=== PATIENT | female | born 1995 | race Caucasian/White ===

== ENCOUNTER 2017-02-07 16:36 | Outpatient (CLI) | payer MEDICAID ==
[2017-02-07 16:52] VITALS: BP 111/69
== END 2017-02-07 18:39 | disposition home or self-care (01) ==
LOC: TRG 16:36
PROVIDERS: ATTEND Obstetrics & Gynecology
DX: O47.1 False labor at or after 37 completed weeks of gestation (principal); Z3A.39 39 weeks gestation of pregnancy
CPT/HCPCS: 59025

== ENCOUNTER 2017-02-08 07:56 | Inpatient (IN) | payer MEDICAID ==
[2017-02-08] MEDS ORDERED: SUBLIMAZE IV PRN (08:22)
[2017-02-08] MEDS ORDERED: ePHEDrine SULFATE IV PRN ×2 (08:22→12:58)
[2017-02-08] MEDS ORDERED: MINERAL OIL PO PRN (08:22)
[2017-02-08] MEDS ORDERED: XYLOCAINE 2% INFILTRATI ONE (08:22)
--- NOTE | 2017-02-08 08:37 | History and Physical Report ---
History of Present Illness Date of examination: 02/08/17 (pt called with c/o SROM @ 0700 "brown color") Date of admission: 02/08/17 07:56 History of present illness: EDC Confirmation: 02/08/2017 Gestational Age: 6 5/7 weeks Past History : 2 Term Births: 1 Living Children: 1 Para: 1 # 1 Delivery date: 08/06/2014 Weeks Gestation: 38 Delivery type: Vaginal Anesthesia type: epidural Delivery location: [facility] Sex: female weight: 6.75 Comments: none Past Medical History: Reviewed history from 02/13/2014 and no changes required: None Past Surgical History: Reviewed history from 02/13/2014 and no changes required: Right arm surgery s/p fall at 6yrs old Past Medical History Abnormal PAP: negative ANNA MARIE Exposure: negative Infertility: negative Uterine Anomaly: negative Uterine Surgery (not C/S): negative Other Gynecologic Problems: negative Social Hx: Patient is single Student 11th grade Infection History Hx of STD: HPV HIV Risk Eval: low risk Hepatitis B Risk Eval: low risk Personal hx. of genital herpes: no Partner hx. of genital herpes: no Rash, Viral, or Febrile illness since last LMP? no Varicella/Chicken Pox Status: Unknown TB Risk: no Genetic History Congenital Heart Defect: Mom: no Dad: no Fred Disease: Mom: no Dad: no Thalassemia Mom: no Dad: no Neural Tube Defect Mom: no Dad: no Down's Syndrome Mom: no Dad: no Heriberto-Sachs Mom: no Dad: no Sickle Cell Disease/Trait Mom: no Dad: no Hemophilia Mom: no Dad: no Muscular Dystrophy Mom: no Dad: no Cystic Fibrosis Mom: no Dad: no [place] Chorea Mom: no Dad: no Mental Retardation Mom: no Dad: no Fragile X Mom: no Dad: no Other Genetic/Chromosomal Disorder Mom: no Dad: no Child w/other defect Mom: no Dad: no Enviromental Exposures Xray Exposure: no Medication, drug, or alcohol use since LMP: no Chemical/Other Exposure: no Exposure to Cat Liter: no Hx of Parvovirus (Fifth Disease): no Occupational Exposure to Children: none Active Medications (reviewed today): ZOFRAN ODT 8 MG TBDP (ONDANSETRON) 1 po q12hrs prn Current Allergies (reviewed today): * CORN (Critical) * SHELLFISH (Critical) Laboratory Results Date/Time Collected: 06/20/2016 Routine Urinalysis Protein: 1+ Glucose: Negative Urine HCG: positive Review of Systems General Denies fever, chills, sweats, anorexia, fatigue, weakness, malaise, weight loss and sleep disorder. Denies nausea, vomiting, headache, swelling of legs, abdominal pain, vaginal discharge, vaginal bleeding and contractions. Denies vaginal discharge, incontinence, dysuria, hematuria, urinary frequency, amenorrhea, menorrhagia, abnormal vaginal bleeding, pelvic pain, genital sores, decreased libido, painful periods, painful sex, urinary urgency, hot flashes, vaginal dryness, vaginal itching and vaginal odor. CV Denies chest pains, palpitations, syncope, dyspnea on exertion, orthopnea, PND and peripheral edema. Resp Denies cough, dyspnea at rest, excessive sputum, hemoptysis, wheezing and pleurisy. GI Denies nausea, vomiting, diarrhea, constipation, change in bowel habits, abdominal pain, melena, hematochezia, jaundice, gas/bloating, indigestion/ heartburn, dysphagia and odynophagia. Endo Denies cold intolerance, heat intolerance, polydipsia, polyphagia, polyuria and unusual weight change. Breast Denies left breast lump, right breast lump, nipple discharge, bloody discharge from nipple, breast pain, abnormal mammogram and breast enlargement. MS Denies back pain, joint pain, joint swelling, muscle cramps, muscle weakness, stiffness, arthritis, sciatica, restless legs, leg pain at night and leg pain with exertion. Derm Denies rash, itching, dryness and suspicious lesions. Neuro Denies paralysis, paresthesias, headache, seizures, tremors, vertigo, transient blindness, frequent falls, frequent headaches and difficulty walking. Psych Denies depression, anxiety, irritability and mood swings. Eyes Denies blurring, diplopia, irritation, discharge, vision loss, eye pain and photophobia. ENT Denies earache, ear discharge, tinnitus, decreased hearing, nasal congestion, nosebleeds, sore throat and hoarseness. Allergy Denies urticaria, allergic rash, hay fever and recurrent infections. Heme Denies abnormal bruising, bleeding and enlarged lymph nodes. 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 Vulva/Vagina: No lesions, normal BUS, normal rugae Cervix: No lesions; no cervical motion tenderness Uterus: normal size and position, midline, mobile Adnexae: no masses or tenderness Rectovaginal: no masses or tenderness Past History - Obstetrical History Expected Date of Delivery: 02/08/17 Actual Gestation: 40 Week(s) 0 Day(s) : 2 Para: 1 Hx # Term Pregnancies: 1 Number of Living Children: 1 Medications and Allergies Allergies Allergy/AdvReac Type Severity Reaction Status Date / Time No Known Allergies Allergy Verified 08/04/14 07:45 Home Medications Medication Instructions Recorded Confirmed Last Taken Type Doxylamine/Pyridoxine HCl 1 each PO Q6HR PRN #30 tablet. 06/09/16 Unknown Rx [Frankie Tamayo 10-10 mg Tablet] Vit W-Ca,Fe,FA(<1 mg) 1 each PO QDAY #30 tablet 06/09/16 Unknown Rx [ Vitamins] Active Meds: Active Medications Ephedrine Sulfate (Ephedrine Sulfate) 10 mg IV Q2M PRN PRN Reason: Hypotension Stop: 02/08/17 08:27 Fentanyl (Sublimaze) 100 mcg IV Q2H PRN PRN Reason: Labor Pain Lactated Ringer's (Lactated Ringers) 1,000 mls @ 125 mls/hr IV DIRECT COREY Oxytocin/Sodium Chloride (Pitocin/Ns 20 Unit/1000ml Drip) 20 units in 1,000 mls @ 125 mls/hr IV DIRECT COREY Oxytocin/Sodium Chloride (Pitocin/Ns 30 Unit/500ml) 30 units in 500 mls @ 4 mls /hr IV Q30MIN COREY PRN Reason: Protocol Lidocaine (Xylocaine 2%) 20 ml INFILTRATI ONCE ONE Stop: 02/08/17 08:23 Mineral Oil (Mineral Oil) 30 ml PO QHS PRN PRN Reason: Constipation Terbutaline Sulfate (Brethine) 0.25 mg SUB-Q ONCE PRN PRN Reason: Hyperstimulation/Hypertonicity Stop: 02/08/17 08:23 - Vital Signs Vital signs: Vital Signs Pulse BP 100 H 109/65 02/08/17 08:13 02/08/17 08:13 Temp Pulse Resp BP Pulse Ox 87 109/65 100 02/08/17 08:24 02/08/17 08:13 02/08/17 08:24 - Physical Exam Breasts: Positive: deferred Cardiovascular: Regular rate, Normal S1, Normal S2 Lungs: Positive: Normal air movement Abdomen: Positive: normal appearance, soft, normal bowel sounds. Negative: distention, tenderness Genitourinary (Female): Positive: normal external genitalia Vulva: both: normal Vagina: Positive: normal moisture. Negative: discharge Cervix: Negative: lesion, discharge Uterus: Positive: normal size, normal contour Adnexa: both: normal Anus/Rectum: Positive: normal perianal skin, heme negative. Negative: rectal mass, hemorrhoids Extremities: Positive: edema Deep Tendon Reflex Grade: Normal +2 - Obstetrical FHR: category 1 Uterine Contraction Monitor Mode: External Cervical Dilatation: 2 (posterior) Cervical Effacement Percentage: 50 (meconium) station: -2 Results All other labs normal. Laboratory Data-Patient Name: PETER MCLEANIREZ Test Date Result Blood Type 07/12/2016 O Rh 07/12/2016 Positive Antibody Screen negative Rubella 07/12/2016 IMMUNE Serology (RPR) 01/12/2017 NR HBsAg 07/12/2016 Negative Hemoglobin 11/09/2016 10.6 Hematocrit 11/09/2016 32.9 Platelets 07/12/2016 247 [id number] Chlamydia DNA 11/09/2016 Negative GC DNA/Culture 11/09/2016 Urine Culture 11/09/2016 Final report Group B Strep cult negative PAP HIV 01/12/2017 AFP/Quad Screen Glucola Test 3hr GTT (Fasting) 1 hr 2 hr 3 hr [facility]-Patient Name:PETER MOORE ELHAM Test Date Result Varicella Ab Sickle Cell 07/12/2016 Negative PPD Fibronectin Cystic Fibrosis Parvovirus TSH Free T4 Hepatitis C ALT AST Uric Acid Creatinine 24 hr Urine Protein OSCAR Assessment and Plan 21yo presents with SROM meconium SVE 2,50,-2 posterior. GBS negative Orders in EMR Re-eval as needed.
[2017-02-08 08:38] LABS: Hematocrit 35.7 % (30.3-42.9); Hemoglobin 11.3 gm/dl (10.1-14.3); Mean Corpuscular HGB Conc 32 % (30-34); Mean Corpuscular Hemoglobin 24 pg (28-32); Mean Corpuscular Volume 76 fl (79-97); Platelet Count 206 K/mm3 (140-440); Red Blood Count 4.69 M/mm3 (3.65-5.03); Red Cell Distribution Width 16.1 % (13.2-15.2); White Blood Count 7.9 K/mm3 (4.5-11.0)
[2017-02-08] MEDS: PITOCin/NS 30 UNIT/500ML 30 UNITS/500 ML BAG IV SCH ×5 (08:55→15:51)
[2017-02-08] MEDS: LACTATED RINGERS 1,000 ML IV SCH ×3 (08:55→14:30)
[2017-02-08] MEDS ORDERED: PITOCin/NS 20 UNIT/1000ML DRIP 20 UNITS/1,000 ML BAG IV SCH (09:00)
[2017-02-08] MEDS ORDERED: BRETHINE SUB-Q PRN (09:30)
--- NOTE | 2017-02-08 12:11 | Progress Note ---
Assessment and Plan complete epidural bolus Pit @ 4mu Re-eval after epidural Subjective - Subjective Date of service: 02/08/17 (req epidural) Interval history: EDC Confirmation: 02/08/2017 Gestational Age: 6 5/7 weeks Past History : 2 Term Births: 1 Living Children: 1 Para: 1 # 1 Delivery date: 08/06/2014 Weeks Gestation: 38 Delivery type: Vaginal Anesthesia type: epidural Delivery location: [facility] Sex: female weight: 6.75 Comments: none Past Medical History: Reviewed history from 02/13/2014 and no changes required: None Past Surgical History: Reviewed history from 02/13/2014 and no changes required: Right arm surgery s/p fall at 6yrs old Past Medical History Abnormal PAP: negative ANNA MARIE Exposure: negative Infertility: negative Uterine Anomaly: negative Uterine Surgery (not C/S): negative Other Gynecologic Problems: negative Social Hx: Patient is single Student 11th grade Infection History Hx of STD: HPV HIV Risk Eval: low risk Hepatitis B Risk Eval: low risk Personal hx. of genital herpes: no Partner hx. of genital herpes: no Rash, Viral, or Febrile illness since last LMP? no Varicella/Chicken Pox Status: Unknown TB Risk: no Genetic History Congenital Heart Defect: Mom: no Dad: no Fred Disease: Mom: no Dad: no Thalassemia Mom: no Dad: no Neural Tube Defect Mom: no Dad: no Down's Syndrome Mom: no Dad: no Heriberto-Sachs Mom: no Dad: no Sickle Cell Disease/Trait Mom: no Dad: no Hemophilia Mom: no Dad: no Muscular Dystrophy Mom: no Dad: no Cystic Fibrosis Mom: no Dad: no [place] Chorea Mom: no Dad: no Mental Retardation Mom: no Dad: no Fragile X Mom: no Dad: no Other Genetic/Chromosomal Disorder Mom: no Dad: no Child w/other defect Mom: no Dad: no Enviromental Exposures Xray Exposure: no Medication, drug, or alcohol use since LMP: no Chemical/Other Exposure: no Exposure to Cat Liter: no Hx of Parvovirus (Fifth Disease): no Occupational Exposure to Children: none Active Medications (reviewed today): ZOFRAN ODT 8 MG TBDP (ONDANSETRON) 1 po q12hrs prn Current Allergies (reviewed today): * CORN (Critical) * SHELLFISH (Critical) Laboratory Results Date/Time Collected: 06/20/2016 Routine Urinalysis Protein: 1+ Glucose: Negative Urine HCG: positive Review of Systems General Denies fever, chills, sweats, anorexia, fatigue, weakness, malaise, weight loss and sleep disorder. Denies nausea, vomiting, headache, swelling of legs, abdominal pain, vaginal discharge, vaginal bleeding and contractions. Denies vaginal discharge, incontinence, dysuria, hematuria, urinary frequency, amenorrhea, menorrhagia, abnormal vaginal bleeding, pelvic pain, genital sores, decreased libido, painful periods, painful sex, urinary urgency, hot flashes, vaginal dryness, vaginal itching and vaginal odor. CV Denies chest pains, palpitations, syncope, dyspnea on exertion, orthopnea, PND and peripheral edema. Resp Denies cough, dyspnea at rest, excessive sputum, hemoptysis, wheezing and pleurisy. GI Denies nausea, vomiting, diarrhea, constipation, change in bowel habits, abdominal pain, melena, hematochezia, jaundice, gas/bloating, indigestion/ heartburn, dysphagia and odynophagia. Endo Denies cold intolerance, heat intolerance, polydipsia, polyphagia, polyuria and unusual weight change. Breast Denies left breast lump, right breast lump, nipple discharge, bloody discharge from nipple, breast pain, abnormal mammogram and breast enlargement. MS Denies back pain, joint pain, joint swelling, muscle cramps, muscle weakness, stiffness, arthritis, sciatica, restless legs, leg pain at night and leg pain with exertion. Derm Denies rash, itching, dryness and suspicious lesions. Neuro Denies paralysis, paresthesias, headache, seizures, tremors, vertigo, transient blindness, frequent falls, frequent headaches and difficulty walking. Psych Denies depression, anxiety, irritability and mood swings. Eyes Denies blurring, diplopia, irritation, discharge, vision loss, eye pain and photophobia. ENT Denies earache, ear discharge, tinnitus, decreased hearing, nasal congestion, nosebleeds, sore throat and hoarseness. Allergy Denies urticaria, allergic rash, hay fever and recurrent infections. Heme Denies abnormal bruising, bleeding and enlarged lymph nodes. 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/Vagina: No lesions, normal BUS, normal rugae Cervix: No lesions; no cervical motion tenderness Uterus: normal size and position, midline, mobile Adnexae: no masses or tenderness Rectovaginal: no masses or tenderness Patient reports: movement normal Objective - Vital Signs Vital Signs: Vital Signs - 12hr 02/08/17 02/08/17 02/08/17 08:13 08:14 08:15 Temperature 98.9 F Pulse Rate 100 H 103 H Pulse Rate [ 100 H From Monitor] Respiratory 20 Rate Blood Pressure 109/65 Blood Pressure 109/65 [Right Arm] O2 Sat by Pulse 98 99 Oximetry 02/08/17 02/08/17 02/08/17 08:19 08:24 08:28 Temperature Pulse Rate 95 H 87 93 H Pulse Rate [ From Monitor] Respiratory Rate Blood Pressure Blood Pressure [Right Arm] O2 Sat by Pulse 99 100 98 Oximetry 02/08/17 02/08/17 02/08/17 10:25 10:27 10:30 Temperature Pulse Rate 78 79 76 Pulse Rate [ From Monitor] Respiratory Rate Blood Pressure Blood Pressure [Right Arm] O2 Sat by Pulse 100 94 97 Oximetry 02/08/17 02/08/17 02/08/17 10:35 10:40 10:45 Temperature Pulse Rate 72 76 79 Pulse Rate [ From Monitor] Respiratory Rate Blood Pressure Blood Pressure [Right Arm] O2 Sat by Pulse 97 97 97 Oximetry 02/08/17 02/08/17 02/08/17 10:50 10:55 11:00 Temperature Pulse Rate 78 82 87 Pulse Rate [ From Monitor] Respiratory Rate Blood Pressure Blood Pressure [Right Arm] O2 Sat by Pulse 97 97 97 Oximetry 02/08/17 02/08/17 02/08/17 11:05 11:10 11:15 Temperature Pulse Rate 79 99 H 86 Pulse Rate [ From Monitor] Respiratory Rate Blood Pressure Blood Pressure [Right Arm] O2 Sat by Pulse 98 98 97 Oximetry 02/08/17 02/08/17 02/08/17 11:20 11:25 11:30 Temperature Pulse Rate 81 80 87 Pulse Rate [ From Monitor] Respiratory Rate Blood Pressure Blood Pressure [Right Arm] O2 Sat by Pulse 97 98 98 Oximetry 02/08/17 02/08/17 02/08/17 11:35 11:40 11:45 Temperature Pulse Rate 100 H 85 86 Pulse Rate [ From Monitor] Respiratory Rate Blood Pressure Blood Pressure [Right Arm] O2 Sat by Pulse 98 98 97 Oximetry - Exam Breasts: deferred Cardiovascular: Regular rate Lungs: Normal air movement Abdomen: Present: normal appearance, soft. Absent: distention, tenderness Uterus: Present: normal FHR: auscultation normal, category 1 Uterine Contraction Monitor Mode: Internal Cervical Dilatation: 4 (ISE/IUPC placed) Cervical Effacement Percentage: 70 station: -1 Uterine Contraction Pattern: Regular Uterine Contraction Intensity: Moderate Extremities: normal Deep Tendon Reflex Grade: Normal +2 - Labs Labs: Abnormal Labs 02/08/17 08:20 MCV 76 L MCH 24 L RDW 16.1 H Laboratory Results - last 24 hr 02/08/17 02/08/17 02/08/17 08:20 08:20 08:41 WBC 7.9 RBC 4.69 Hgb 11.3 Hct 35.7 MCV 76 L MCH 24 L MCHC 32 RDW 16.1 H Plt Count 206 RPR Nonreactive Blood Type O POSITIVE YESENIA Antibody Screen Negative
[2017-02-08] MEDS ORDERED: fentaNYL-BUPIV 2 MCG/ML-0.125% 200 MCG/100 ML BAG EPIDURAL ONE (12:52)
[2017-02-08] MEDS ORDERED: NARCAN 2 MG/2 ML IV PRN (12:58)
--- NOTE | 2017-02-08 12:58 | Anesthesia Consultation ---
Anesthesia Consult and Med Hx Date of service: 02/08/17 - Airway Anesthetic Teeth Evaluation: Good ROM Head & Neck: Adequate Mental/Hyoid Distance: Adequate Mallampati Class: Class II Intubation Access Assessment: Probably Good - Pulmonary Exam CTA: Yes - Cardiac Exam Cardiac Exam: RRR - Pre-Operative Health Status ASA Pre-Surgery Classification: ASA2 Proposed Anesthetic Plan: Epidural - Pulmonary Hx Asthma: No COPD: No Hx Pneumonia: No - Cardiovascular System Hx Hypertension: No - Central Nervous System Hx Seizures: No Hx Psychiatric Problems: No - Endocrine Hx Renal Disease: No Hx End Stage Renal Disease: No Hx Hypothyroidism: No Hx Hyperthyroidism: No - Hematic Hx Anemia: No Hx Sickle Cell Disease: No - Other Systems Hx Alcohol Use: No
[2017-02-08] MEDS ORDERED: fentaNYL-BUPIV 2 MCG/ML-0.125% 200 MCG/100 ML BAG EPIDURAL SCH (13:00)
--- NOTE | 2017-02-08 16:17 | Progress Note ---
Assessment and Plan Pitocin @ 20 mu SVE 8,100,0 Anticipate delivery Subjective - Subjective Date of service: 02/08/17 (pt very comfortable with epidural) Interval history: EDC Confirmation: 02/08/2017 Gestational Age: 6 5/7 weeks Past History : 2 Term Births: 1 Living Children: 1 Para: 1 # 1 Delivery date: 08/06/2014 Weeks Gestation: 38 Delivery type: Vaginal Anesthesia type: epidural Delivery location: [facility] Infant Sex: female weight: 6.75 Comments: none Past Medical History: Reviewed history from 02/13/2014 and no changes required: None Past Surgical History: Reviewed history from 02/13/2014 and no changes required: Right arm surgery s/p fall at 6yrs old Past Medical History Abnormal PAP: negative ANNA MARIE Exposure: negative Infertility: negative Uterine Anomaly: negative Uterine Surgery (not C/S): negative Other Gynecologic Problems: negative Social Hx: Patient is single Student 11th grade Infection History Hx of STD: HPV HIV Risk Eval: low risk Hepatitis B Risk Eval: low risk Personal hx. of genital herpes: no Partner hx. of genital herpes: no Rash, Viral, or Febrile illness since last LMP? no Varicella/Chicken Pox Status: Unknown TB Risk: no Genetic History Congenital Heart Defect: Mom: no Dad: no Fred Disease: Mom: no Dad: no Thalassemia Mom: no Dad: no Neural Tube Defect Mom: no Dad: no Down's Syndrome Mom: no Dad: no Heriberto-Sachs Mom: no Dad: no Sickle Cell Disease/Trait Mom: no Dad: no Hemophilia Mom: no Dad: no Muscular Dystrophy Mom: no Dad: no Cystic Fibrosis Mom: no Dad: no [place] Chorea Mom: no Dad: no Mental Retardation Mom: no Dad: no Fragile X Mom: no Dad: no Other Genetic/Chromosomal Disorder Mom: no Dad: no Child w/other defect Mom: no Dad: no Enviromental Exposures Xray Exposure: no Medication, drug, or alcohol use since LMP: no Chemical/Other Exposure: no Exposure to Cat Liter: no Hx of Parvovirus (Fifth Disease): no Occupational Exposure to Children: none Active Medications (reviewed today): ZOFRAN ODT 8 MG TBDP (ONDANSETRON) 1 po q12hrs prn Current Allergies (reviewed today): * CORN (Critical) * SHELLFISH (Critical) Laboratory Results Date/Time Collected: 06/20/2016 Routine Urinalysis Protein: 1+ Glucose: Negative Urine HCG: positive Review of Systems General Denies fever, chills, sweats, anorexia, fatigue, weakness, malaise, weight loss and sleep disorder. Denies nausea, vomiting, headache, swelling of legs, abdominal pain, vaginal discharge, vaginal bleeding and contractions. Denies vaginal discharge, incontinence, dysuria, hematuria, urinary frequency, amenorrhea, menorrhagia, abnormal vaginal bleeding, pelvic pain, genital sores, decreased libido, painful periods, painful sex, urinary urgency, hot flashes, vaginal dryness, vaginal itching and vaginal odor. CV Denies chest pains, palpitations, syncope, dyspnea on exertion, orthopnea, PND and peripheral edema. Resp Denies cough, dyspnea at rest, excessive sputum, hemoptysis, wheezing and pleurisy. GI Denies nausea, vomiting, diarrhea, constipation, change in bowel habits, abdominal pain, melena, hematochezia, jaundice, gas/bloating, indigestion/ heartburn, dysphagia and odynophagia. Endo Denies cold intolerance, heat intolerance, polydipsia, polyphagia, polyuria and unusual weight change. Breast Denies left breast lump, right breast lump, nipple discharge, bloody discharge from nipple, breast pain, abnormal mammogram and breast enlargement. MS Denies back pain, joint pain, joint swelling, muscle cramps, muscle weakness, stiffness, arthritis, sciatica, restless legs, leg pain at night and leg pain with exertion. Derm Denies rash, itching, dryness and suspicious lesions. Neuro Denies paralysis, paresthesias, headache, seizures, tremors, vertigo, transient blindness, frequent falls, frequent headaches and difficulty walking. Psych Denies depression, anxiety, irritability and mood swings. Eyes Denies blurring, diplopia, irritation, discharge, vision loss, eye pain and photophobia. ENT Denies earache, ear discharge, tinnitus, decreased hearing, nasal congestion, nosebleeds, sore throat and hoarseness. Allergy Denies urticaria, allergic rash, hay fever and recurrent infections. Heme Denies abnormal bruising, bleeding and enlarged lymph nodes. 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, or edema [employer] Exams Vulva/Vagina: No lesions, normal BUS, normal rugae Cervix: No lesions; no cervical motion tenderness Uterus: normal size and position, midline, mobile Adnexae: no masses or tenderness Rectovaginal: no masses or tenderness Patient reports: movement normal Objective - Vital Signs Vital Signs: Vital Signs - 12hr 02/08/17 02/08/17 02/08/17 08:13 08:14 08:15 Temperature 98.9 F Pulse Rate 100 H 103 H Pulse Rate [ 100 H From Monitor] Respiratory 20 Rate Blood Pressure 109/65 Blood Pressure 109/65 [Right Arm] O2 Sat by Pulse 98 99 Oximetry 02/08/17 02/08/17 02/08/17 08:19 08:24 08:28 Temperature Pulse Rate 95 H 87 93 H Pulse Rate [ From Monitor] Respiratory Rate Blood Pressure Blood Pressure [Right Arm] O2 Sat by Pulse 99 100 98 Oximetry 02/08/17 02/08/17 02/08/17 10:25 10:27 10:30 Temperature Pulse Rate 78 79 76 Pulse Rate [ From Monitor] Respiratory Rate Blood Pressure Blood Pressure [Right Arm] O2 Sat by Pulse 100 94 97 Oximetry 02/08/17 02/08/17 02/08/17 10:35 10:40 10:45 Temperature Pulse Rate 72 76 79 Pulse Rate [ From Monitor] Respiratory Rate Blood Pressure Blood Pressure [Right Arm] O2 Sat by Pulse 97 97 97 Oximetry 02/08/17 02/08/17 02/08/17 10:50 10:55 11:00 Temperature Pulse Rate 78 82 87 Pulse Rate [ From Monitor] Respiratory Rate Blood Pressure Blood Pressure [Right Arm] O2 Sat by Pulse 97 97 97 Oximetry 02/08/17 02/08/17 02/08/17 11:05 11:10 11:15 Temperature Pulse Rate 79 99 H 86 Pulse Rate [ From Monitor] Respiratory Rate Blood Pressure Blood Pressure [Right Arm] O2 Sat by Pulse 98 98 97 Oximetry 02/08/17 02/08/17 02/08/17 11:20 11:25 11:30 Temperature Pulse Rate 81 80 87 Pulse Rate [ From Monitor] Respiratory Rate Blood Pressure Blood Pressure [Right Arm] O2 Sat by Pulse 97 98 98 Oximetry 02/08/17 02/08/17 02/08/17 11:35 11:40 11:45 Temperature Pulse Rate 100 H 85 86 Pulse Rate [ From Monitor] Respiratory Rate Blood Pressure Blood Pressure [Right Arm] O2 Sat by Pulse 98 98 97 Oximetry 02/08/17 02/08/17 02/08/17 13:09 13:13 14:05 Temperature Pulse Rate 99 H 93 H 90 Pulse Rate [ From Monitor] Respiratory Rate Blood Pressure 119/58 95/56 87/51 Blood Pressure [Right Arm] O2 Sat by Pulse Oximetry 02/08/17 02/08/17 02/08/17 14:14 14:27 14:30 Temperature Pulse Rate 97 H 113 H 112 H Pulse Rate [ From Monitor] Respiratory Rate Blood Pressure 91/54 86/51 90/55 Blood Pressure [Right Arm] O2 Sat by Pulse Oximetry - Exam Breasts: deferred Cardiovascular: Regular rate Lungs: Normal air movement Abdomen: Present: normal appearance, soft. Absent: distention, tenderness Uterus: Present: normal FHR: auscultation normal, category 1 Uterine Contraction Monitor Mode: Internal Cervical Dilatation: 8 Cervical Effacement Percentage: 100 station: 0 Uterine Contraction Pattern: Regular Uterine Contraction Intensity: Moderate Extremities: normal Deep Tendon Reflex Grade: Normal +2 - Labs Labs: Abnormal Labs 02/08/17 08:20 MCV 76 L MCH 24 L RDW 16.1 H Laboratory Results - last 24 hr 02/08/17 02/08/17 02/08/17 08:20 08:20 08:41 WBC 7.9 RBC 4.69 Hgb 11.3 Hct 35.7 MCV 76 L MCH 24 L MCHC 32 RDW 16.1 H Plt Count 206 RPR Nonreactive Blood Type O POSITIVE YESENIA Antibody Screen Negative
[2017-02-08] MEDS ORDERED: TUCKS PAD TP PRN (16:58)
[2017-02-08] MEDS ORDERED: PHENERGAN PO PRN (16:58)
[2017-02-08] MEDS ORDERED: DERMOPLAST TP PRN (16:58)
[2017-02-08] MEDS ORDERED: DULCOLAX PR PRN (16:58)
[2017-02-08] MEDS ORDERED: BENADRYL PO PRN (16:58)
[2017-02-08] MEDS ORDERED: LANSINOH TP PRN (16:58)
[2017-02-08] MEDS ORDERED: MILK OF MAGNESIA PO PRN (16:58)
[2017-02-08] MEDS ORDERED: TYLENOL PO PRN (16:58)
[2017-02-08] MEDS ORDERED: ZOFRAN IV PRN (16:58)
[2017-02-08] MEDS ORDERED: SODIUM CHLORIDE FLUSH SYRINGE 10 ML IV NR (17:00)
--- NOTE | 2017-02-08 17:11 | Procedure Note ---
OB Delivery Note - Delivery Date of Delivery: 02/08/17 Renal Dialysis Technician: CYRUS CABEZAS Estimated blood loss: 300cc - Vaginal Delivery presentation: vertex Delivery position: OA Intrapartum events: meconium Delivery induction: none Delivery augmentation: pitocin Delivery monitor: internal FHT, internal uterine Route of delivery: Delivery placenta: spontaneous Delivery cord: 3 umbilical vessels Episiotomy: none Delivery laceration: none Anesthesia: epidural Delivery comments: NICU called to room Meconium live born female over intact perineum to mom's abdomen Baby crying Cord blood obt Placenta and membrane del complete and intact, 3 vessel cord. Pit IVFs 8/9, EBL 300, Wgt 7-11. Mom and baby remain LDR stable. - Infant A at 1 minute: 8 at 5 minutes: 9 Infant Gender: Female (wgt 7-11)
[2017-02-08] MEDS: COLACE PO SCH (21:29)
[2017-02-08] MEDS: MOTRIN PO SCH (21:30)
[2017-02-08] MEDS: NORCO 5/325 PO PRN (21:31)
[2017-02-09] MEDS: MOTRIN PO SCH ×2 (05:34→13:04)
[2017-02-09] MEDS ORDERED: BOOSTRIX IM ONE (06:00)
[2017-02-09] MEDS ORDERED: M-M-R II VACCINE SUB-Q ONE (06:00)
[2017-02-09 07:35] LABS: Hematocrit 31.2 % (30.3-42.9); Hemoglobin 9.9 gm/dl (10.1-14.3)
[2017-02-09] MEDS: COLACE PO SCH (09:45)
[2017-02-09] MEDS: NORCO 5/325 PO PRN (09:54)
[2017-02-09] MEDS ORDERED: PRENATAL VITAMIN PO SCH (10:00)
--- NOTE | 2017-02-09 10:32 | Progress Note ---
Subjective Date of service: 02/09/17 Interval history: 1st day after normal vaginal delivery Patient is in the bed, comfortable. Pain is well under control. Ambulated well. No residual neurological deficit. No anesthesia complications Objective - Constitutional Vitals: Vital Signs - 12hr 02/09/17 02/09/17 00:10 09:15 Temperature 97.8 F 98.2 F Pulse Rate [ 81 70 From Monitor] Respiratory 18 18 Rate Blood Pressure 102/55 90/50 [Right Arm] - Labs CBC & Chem 7: 02/09/17 06:50 Labs: Abnormal lab results 02/09/17 Range/Units 06:50 Hgb 9.9 L (10.1-14.3) gm/dl
--- NOTE | 2017-02-09 10:54 | Progress Note ---
Assessment and Plan patient doing well, no complaints. desires d/c home today. Rainer coffey, VSSAF , H&H 9.9/31.2, asymptomatic for anemia. Plan for d/c home with routine f/u in office. - Patient Problems (1) Spontaneous vaginal delivery Current Visit: Yes Status: Acute Subjective - Subjective Date of service: 02/09/17 Principal diagnosis: day #1 s/p Patient reports: appetite normal, voiding normally, pain well controlled, ambulating normally, no dizzy ambulation, no nauseated Wolf: doing well, nursing well Objective - Vital Signs Latest vital signs: Vital Signs Temp Pulse Pulse Resp BP BP Pulse Ox 02/09/17 09:15 98.2 F 70 18 90/50 02/09/17 00:10 97.8 F 81 18 102/55 02/08/17 20:00 98.8 F 102 H 18 108/67 02/08/17 18:45 98.7 F 114 H 16 100/70 02/08/17 17:25 101 H 106/59 02/08/17 17:10 100 H 105/53 02/08/17 17:03 98 H 113/58 02/08/17 14:30 112 H 90/55 02/08/17 14:27 113 H 86/51 02/08/17 14:14 97 H 91/54 02/08/17 14:05 90 87/51 02/08/17 13:13 93 H 95/56 02/08/17 13:09 99 H 119/58 02/08/17 11:45 86 97 02/08/17 11:40 85 98 02/08/17 11:35 100 H 98 02/08/17 11:30 87 98 02/08/17 11:25 80 98 02/08/17 11:20 81 97 02/08/17 11:15 86 97 02/08/17 11:10 99 H 98 02/08/17 11:05 79 98 02/08/17 11:00 87 97 02/08/17 10:55 82 97 Intake and Output 02/08/17 02/09/17 02/09/17 22:59 06:59 14:59 Intake Total 360 1360 240 Output Total 600 500 400 Balance -240 860 -160 Intake: IV 1000 PITOCin/NS 20 UNIT/1000ML 1000 DRIP 20 units In 1,000 ml @ 125 mls/hr IV DIRECT COREY Rx#:[id number] Oral 360 360 240 Output: Urine 600 500 400 Void 600 500 400 Other: Total, Intake Amount 120 120 240 Total, Output Amount 600 500 400 Estimated Blood Loss 300 - Exam Breasts: Present: normal Cardiovascular: Present: Regular rate Lungs: Present: Clear to auscultation, Normal air movement Abdomen: Present: normal appearance, soft Uterus: Present: normal, firm, fundal height at umbilicus Extremities: Present: normal - Labs Labs: Abnormal lab results 02/09/17 Range/Units 06:50 Hgb 9.9 L (10.1-14.3) gm/dl
--- NOTE | 2017-02-09 10:56 | Discharge Summary ---
Providers - Providers Date of Admission: 02/08/17 07:56 Date of discharge: 02/09/17 (desires d/c home) Attending physician: MICHELLE DAY Primary care physician: MICHELLE DAY Hospitalization Reason for admission: active labor Delivery: Episiotomy: none Laceration: none Other procedures: none complications: none Discharge diagnosis: IUP at term delivered Conde baby: female Hospital course: uncomplicated vaginal Condition at discharge: Good Disposition: DISCHARGED TO HOME OR SELFCARE - Discharge Diagnoses (1) Spontaneous vaginal delivery Status: Acute Plan - Provider Discharge Summary Activity: routine, no sex for 6 weeks, no heavy lifting 4 weeks, no strenuous exercise Diet: routine Instructions: routine Additional instructions: [] Smoking cessation referral if applicable(refer to patient education folder for contact #) [] Refer to [facility] Call your doctor immediately for: * Fever > 100.5 * Heavy vaginal bleeding ( >1 pad per hour) * Severe persistent headache * Shortness of breath * Reddened, hot, painful area to leg or breast * Drainage or odor from incision. * Keep incision clean and dry at all times and follow doctor's instructions regarding bathing/showering - Follow up plan Follow up: MICHELLE DAY MD [Primary Care Provider] - 03/15/17 (Congratulations! Please call [phone] to schedule your visit in 4 weeks. Call for any questions or concerns.)
[2017-02-09 16:34] VITALS: BP 100/60
== END 2017-02-09 17:50 | disposition home or self-care (01) | DRG 775 ==
LOC: LD 07:56 → OB 18:53
PROVIDERS: ADMIT Obstetrics & Gynecology; ATTEND Obstetrics & Gynecology
PROC: 10E0XZZ Delivery of Products of Conception, External Approach (ICD-10-PCS; principal; 2017-02-08)
PROC: 3E0234Z Introduction of Serum, Toxoid and Vaccine into Muscle, Percutaneous Approach (ICD-10-PCS; 2017-02-08)
PROC: 00HU33Z Insertion of Infusion Device into Spinal Canal, Percutaneous Approach (ICD-10-PCS; 2017-02-08)
PROC: 3E0R3CZ (ICD-10-PCS; 2017-02-08)
DX: O77.0 Labor and delivery complicated by meconium in amniotic fluid (principal); O42.02 Full-term premature rupture of membranes, onset of labor within 24 hours of rupture; Z3A.38 38 weeks gestation of pregnancy; Z37.0 Single live birth
CPT/HCPCS: 36415; 85014; 85018; 85027; 86592; 86850; 86900; 86901; 90715; 99211; G0463; J2590; J3010; J7120